=== PATIENT | female | born 2000 | race Caucasian/White ===

== ENCOUNTER 2021-08-05 12:23 | Emergency (ER) | payer OTHER ==
[~2021-08-05] VITALS: Ht 167.6 cm; Wt 77.1 kg
[2021-08-05] MEDS ORDERED: Bactrim Ds Tab1 EACH PO (13:29)
[2021-08-05] MEDS ORDERED: Mupirocin22 GM TOP (13:29)
[2021-08-05] MEDS ORDERED: CEPH500 PO (13:29)
== END 2021-08-05 13:39 | disposition home or self-care (01) ==
LOC: ER 12:23
DX: L03.116 Cellulitis of left lower limb (principal); L73.9 Follicular disorder, unspecified
CPT/HCPCS: A9270